=== PATIENT | female | born 1970 | race Caucasian/White ===

== ENCOUNTER → 2017-03-06 | Outpatient (CLI) | payer BC ==
[~2017-03-06] MED LIST: ASPEC81 PO; ATV/1 PO; B-COTAB18 PO; BUPR-266 PO; CALC500T68 PO; CHOL1CAP74 PO; FRRG27 PO; GLC500 PO; HMLI SC; HYDR25TA5 PO; INSDGI SQ; LAMO200T PO; LAMO200T38 PO; LEVO100T PO; LOSA100T65 PO; METH10TA4 PO; PRVC/20 PO; ZNTT/150 PO
[2017-03-06 18:02] LABS: BASO % 0.4 %; BASO ABS # 0.03 K/uL (0-0.2); COMPLETE YES; EOS % 2.3 %; HEMATOCRIT 38.7 % (37-47); IG% 0.3 %; LYMPH % 28.5 %; MEAN CELL VOLUME 88.8 fL (80-100); MEAN CORPUSCULAR HEMOGLOBIN 29.4 pg (25-34); MEAN CORPUSCULAR HGB CONC 33.1 g/dl (32-36); MEAN PLATELET VOLUME 9.8 fL (7.4-10.4); MONO % 6.6 %; NEUT % 61.9 %; PLATELET COUNT 371 K/uL (130-400); RED BLOOD COUNT 4.36 M/uL (4.2-5.4); WHITE BLOOD COUNT 7.38 K/uL (4.8-10.8)
[2017-03-06 18:24] LABS: CALCIUM 9.2 mg/dl (8.5-10.1)
[2017-03-06 18:38] LABS: FERRITIN 87.4 ng/ml (8.0-388.0); THYROID STIMULATING HORMONE 1.43 uIu/ml (0.300-4.500)
[2017-03-06 18:56] LABS: ESTIMATED AVERAGE GLUCOSE 137 mg/dl; HA1C FLAG Normal (Normal)
[2017-03-11 10:05] LABS: METHYLMALONIC ACID 107 NMOL/L (87-318)
== END | disposition home or self-care (01) ==
LOC: C.LABMFLN 12:57
PROVIDERS: ATTEND Psychiatry & Neurology Child & Adolescent Psychiatry
DX: F33.2 Major depressive disorder, recurrent severe without psychotic features (principal); Z98.84 Bariatric surgery status; E03.9 Hypothyroidism, unspecified; E06.3 Autoimmune thyroiditis; E78.5 Hyperlipidemia, unspecified; E55.9 Vitamin D deficiency, unspecified; I10 Essential (primary) hypertension; E11.9 Type 2 diabetes mellitus without complications

== ENCOUNTER 2017-03-19 07:52 | Day surgery (SDC) | payer BC ==
[~2017-03-19] VITALS: Ht 175.3 cm; Wt 97.0 kg
[~2017-03-19 07:52] MED LIST changes: +PATIENT'S ALLERGY INFO NEEDS ENTERED SCH
[2017-03-19 07:56] VITALS: BP 133/76; PULSE 82; TEMP 36.6; O2SAT 96; Ht 175.3 cm; Wt 97.0 kg
[2017-03-19] MEDS ORDERED: PRAM0.129 PO (08:21)
[2017-03-19 08:30] VITALS: BP 121/77; PULSE 82; TEMP 36.6; O2SAT 96
[2017-03-19] MEDS ORDERED: COSYNTROPIN INJ 1 MCG in SYRINGE 0 ML IV SCH (08:30)
[2017-03-19 09:00] VITALS: BP 124/79; PULSE 76; TEMP 36.6; O2SAT 96
[2017-03-19 09:30] VITALS: BP 132/84; PULSE 82; O2SAT 96
== END 2017-03-20 12:56 | disposition home or self-care (01) ==
LOC: C.MTU 07:52
PROVIDERS: ATTEND Internal Medicine Endocrinology, Diabetes & Metabolism
DX: E06.3 Autoimmune thyroiditis (principal); E03.9 Hypothyroidism, unspecified; F32.9 Major depressive disorder, single episode, unspecified; E11.9 Type 2 diabetes mellitus without complications; R41.3 Other amnesia

== ENCOUNTER → 2017-03-27 | Outpatient (CLI) | payer BC ==
[~2017-03-27] MED LIST changes: +ASPI81TA28 PO; +BUSP15TA70 PO; +CALC-51 PO; +ESTR2TAB PO; +FERR1TAB13 PO; -HYDR25TA5 PO; +MAGN1CAP2 PO; +ONDA4TAB10 SL; -PATIENT'S ALLERGY INFO NEEDS ENTERED SCH; +PRAM0.129 PO; +[UNRECOGNIZED DRUG - CODE] PO
[2017-03-27 18:09] LABS: BASO % 0.4 %; BASO ABS # 0.04 K/uL (0-0.2); COMPLETE YES; EOS % 1.3 %; HEMATOCRIT 39.3 % (37-47); IG% 0.2 %; LYMPH ABS # 2.47 K/uL (1.2-3.4); MEAN CELL VOLUME 88.3 fL (80-100); MEAN CORPUSCULAR HEMOGLOBIN 30.1 pg (25-34); MEAN CORPUSCULAR HGB CONC 34.1 g/dl (32-36); MEAN PLATELET VOLUME 9.7 fL (7.4-10.4); MONO % 5.9 %; NEUT % 68.2 %; PLATELET COUNT 429 K/uL (130-400); RED BLOOD COUNT 4.45 M/uL (4.2-5.4); WHITE BLOOD COUNT 10.31 K/uL (4.8-10.8)
[2017-03-27 18:33] LABS: ALT/SGPT 39 U/L (12-78); AMYLASE 30 U/L (25-115); AST/SGOT 18 U/L (15-37); BLOOD UREA NITROGEN 8 mg/dl (7-18); BUN/CREATININE RATIO 7.7 (10-20); CALCIUM 8.9 mg/dl (8.5-10.1); CARBON DIOXIDE 24 mmol/L (21-32); CHLORIDE 108 mmol/L (98-107); GLUCOSE 159 mg/dl (70-99); POTASSIUM 4.1 mmol/L (3.5-5.1); SODIUM 139 mmol/L (136-145)
[2017-03-27 18:36] LABS: ALB/GLOB RATIO 1.3 (0.9-2); ALKALINE PHOSPHATASE 79 U/L (45-117)
== END | disposition home or self-care (01) ==
LOC: C.LABMFLN 13:19
PROVIDERS: ATTEND Family Medicine
DX: R10.13 Epigastric pain (principal)

== ENCOUNTER → 2017-04-06 | Outpatient (CLI) | payer BC | END | disposition home or self-care (01) | LOC: C.LABMFLN 09:53 | PROVIDERS: ATTEND Internal Medicine Endocrinology, Diabetes & Metabolism | DX: R63.4 Abnormal weight loss (principal); M62.81 Muscle weakness (generalized); C64.9 Malignant neoplasm of unspecified kidney, except renal pelvis ==

== ENCOUNTER 2017-05-09 17:28 | Emergency (ER) | payer BC ==
[~2017-05-09] VITALS: Ht 177.8 cm; Wt 94.1 kg
[~2017-05-09 17:28] MED LIST changes: -ASPI81TA28 PO; -BUSP15TA70 PO; -CALC-51 PO; -ESTR2TAB PO; -FERR1TAB13 PO; -MAGN1CAP2 PO; -ONDA4TAB10 SL; -[UNRECOGNIZED DRUG - CODE] PO
[2017-05-09 17:44] VITALS: TEMP 36.7; Ht 177.8 cm; Wt 94.1 kg
--- NOTE | 2017-05-09 18:20 | EMERGENCY ROOM VISIT NOTE ---
History Report prepared by Laura: Vadim Albert Under the Supervision of: Dr. Wale Salazar M.D. First contact with patient: 18:01 Chief Complaint: GI ASSESSMENT Stated Complaint: ACID REFLUX,DEHYDRATED,NAUSEA History of Present Illness The patient is a 46 year old female who presents to the Emergency Room with complaints of constant, burning, epigastric chest pain beginning three days ago. The patient states that she has a history of gastric bypass surgery that occurred 16 years ago. She reports that since then, she has had a recurrent peptic ulcer. The patient notes that she believes it is GERD and believes this is a flare. The patient notes that her chest pain occasionally radiates to her left shoulder. She states that five days ago she developed diarrhea that was green, and she noticed black in her stool in the ED. She denies a history of C- Diff, drinking from streams, and recent travel. The patient reports that she has been experiencing nausea, dry heaves, a decreased appetite, and cramping in her toes for the past few days. She notes that she believes this is because she is dehydrated. The patient states that she has tried roll aids and TUMs, but they have not been helping. She reports that she developed a headache earlier today, and she tried Vicodin, Tylenol, and ibuprofen, but they are not helping. The patient notes that she is trying to schedule an endoscopy. She denies hematochezia, vomiting, cough, shortness of breath, and recent seizures. The patient states that she has a history of diabetes mellitus, and she has not checked her blood glucose recently. She reports that she occasionally eats marijuana. The patient notes that she has a history of a hysterectomy, cholecystectomy, and denies a history of pancreatitis and appendicitis. Source of History: patient Onset: three days ago Position: chest (epigastric) Quality: burning Timing: constant Associated Symptoms: + headache, + nausea, + melena, + diarrhea, No cough, No SOB, No vomiting, No hematochezia Note: Associated symptoms: left shoulder pain, decreased appetite, dry heaves, toe cramping Denies: recent seizures Review of Systems See HPI for pertinent positives & negatives. A total of 10 systems reviewed and were otherwise negative. Past Medical & Surgical Medical Problems: (1) Anemia (2) CASH'S PALSY (3) Cancer of kidney (4) DM (diabetes mellitus) (5) Epilepsy (6) Hypothyroidism (7) HYPOTHYROIDISM NOS (8) Kidney stone (9) Numbness on left side (10) RENAL COLIC Surgical Problems: (1) S/P gastric bypass Old medical records were reviewed. Nurse's notes were reviewed and I agree with. Family History Diabetes mellitus FH: cancer FH: gallbladder disease Kidney disease Kidney stones Seizures Social History Smoking Status: Never Smoker Alcohol Use: none Drug Use: marijuana Marital Status: single Housing Status: lives with family Occupation Status: unemployed Current/Historical Medications Scheduled Aspirin (Aspirin Ec), 162 MG PO QPM B-Complex Vitamins (Vitamin B Complex), 1 TAB PO BID Bupropion Hcl (Bupropion Hcl Er), 200 MG PO BID Buspirone Hcl (Buspar), 30 MG PO BID Calcium Carbonate-Vitamin D (Calcium), 400 MG PO HS Cholecalciferol (Vitamin D3 Maximum Streng), 5,000 UNITS PO DAILY Estradiol (Estradiol), 2 MG PO DAILY Ferrous Sulfate (Kp Ferrous Sulfate), 650 MG PO BID Lamotrigine (Lamictal), 200 MG PO QAM Lamotrigine (Lamictal), 100 MG PO HS Levothyroxine Sodium (Synthroid), 150 MCG PO QAM Losartan Potassium (Cozaar), 50 MG PO DAILY Loxapine Succinate (Loxapine), 10 MG PO HS Magnesium Oxide (Mg Supplement (Magnesium), 400 MG PO TID Metformin HCl (Metformin HCl), 1,000 MG PO BID Methylphenidate (Ritalin), 20 MG PO QID Ondasetron Odt (Zofran Odt), 4 MG SL Q6H Pramipexole (Mirapex), 0.5 MG PO TID Pravastatin Sod (Pravastatin Sodium), 20 MG PO DAILY Scheduled PRN Lorazepam (Ativan), 1 MG PO QID PRN for PRN Ranitidine (Zantac), 150 MG PO BID PRN for PRN Allergies Coded Allergies: Ketorolac (Verified Adverse Reaction, Mild, NAUSEA, 05/09/17) Physical Exam Vital Signs Date Time Temp Pulse Resp B/P (MAP) Pulse Ox O2 Delivery O2 Flow Rate FiO2 05/09/17 20:53 82 20 166/98 99 Room Air 05/09/17 19:12 90 05/09/17 18:52 91 18 153/101 97 Room Air 05/09/17 18:51 96 Room Air 05/09/17 17:44 36.7 106 20 150/99 96 Room Air Physical Exam General: Well developed well nourished in no acute distress, breathing comfortably on room air. Normal speech. Non-ill appearing, middle aged female. HEENT: Normal cephalic atraumatic. Pupils are equal round and reactive to light. Sclera anicteric. Extraocular movements are intact. Oropharynx is pink with moist mucous membranes. No swelling of the mouth lips or tongue. Neck: Supple with a midline trachea. No meningeal signs or stiffness, no JVD or bruits. No Stridor. Chest: Clear to auscultation bilaterally. No wheezes or rhonchi. No increased work of breathing. Heart: regular rate and rhythm. Abdomen: Soft nontender, nondistended without rebound guarding or rigidity. Extremities: No cyanosis clubbing or edema. No calf tenderness or assymetry Spine/Back. Non tender to palpation. No CVA tenderness Skin: Good turgor without rashes. Neurologic exam: Cranial nerves two through 12 are intact. Motor and sensation are intact and symmetrical throughout. Medical Decision & Procedures ER Provider Diagnostic Interpretation: X-ray results as stated below per interpretation by me and the radiologist: CHEST ONE VIEW PORTABLE CLINICAL HISTORY: 46 years-old Female presenting with CHEST PAIN. TECHNIQUE: Portable upright AP view of the chest was obtained. COMPARISON: 05/31/2014. FINDINGS: Cardiomediastinal silhouette normal. Lungs and pleural spaces clear. Osseous structures normal. Suture margin projects over the epigastrium from prior gastric bypass. Cholecystectomy clips noted. IMPRESSION: 1. No acute cardiopulmonary disease. Electronically signed by: Lincoln Fuller M.D. 05/09/2017 6:44 PM Dictated Date/Time: 05/09/2017 6:43 PM Laboratory Results 05/09/17 18:44 Red Blood Count 4.19, Mean Corpuscular Volume 89.0, Mean Corpuscular Hemoglobin 30.1, Mean Corpuscular Hemoglobin Concent 33.8, Mean Platelet Volume 9.0, Neutrophils (%) (Auto) 69.9, Lymphocytes (%) (Auto) 22.5, Monocytes (%) (Auto) 6.1, Eosinophils (%) (Auto) 0.8, Basophils (%) (Auto) 0.2, Neutrophils # (Auto) 6.08, Lymphocytes # (Auto) 1.96, Monocytes # (Auto) 0.53, Eosinophils # (Auto) 0.07, Basophils # (Auto) 0.02 05/09/17 18:44 Test 05/09/17 17:40 05/09/17 18:44 05/09/17 18:49 Urine Color YELLOW Urine Appearance CLEAR (CLEAR) Urine pH 6.5 (4.5-7.5) Urine Specific [place] 1.011 (1.000-1.030) Urine Protein NEG (NEG) Urine Glucose (UA) NEG (NEG) Urine Ketones NEG (NEG) Urine Occult Blood NEG (NEG) Urine Nitrite NEG (NEG) Urine Bilirubin NEG (NEG) Urine Urobilinogen NEG (NEG) Urine Leukocyte Esterase NEG (NEG) White Blood Count 8.70 K/uL (4.8-10.8) Red Blood Count 4.19 M/uL (4.2-5.4) Hemoglobin 12.6 g/dL (12.0-16.0) Hematocrit 37.3 % (37-47) Mean Corpuscular Volume 89.0 fL (80-100) Mean Corpuscular Hemoglobin 30.1 pg (25-34) Mean Corpuscular Hemoglobin Concent 33.8 g/dl (32-36) Platelet Count 355 K/uL (130-400) Mean Platelet Volume 9.0 fL (7.4-10.4) Neutrophils (%) (Auto) 69.9 % Lymphocytes (%) (Auto) 22.5 % Monocytes (%) (Auto) 6.1 % Eosinophils (%) (Auto) 0.8 % Basophils (%) (Auto) 0.2 % Neutrophils # (Auto) 6.08 K/uL (1.4-6.5) Lymphocytes # (Auto) 1.96 K/uL (1.2-3.4) Monocytes # (Auto) 0.53 K/uL (0.11-0.59) Eosinophils # (Auto) 0.07 K/uL (0-0.5) Basophils # (Auto) 0.02 K/uL (0-0.2) RDW Standard Deviation 43.1 fL (36.4-46.3) RDW Coefficient of Variation 13.3 % (11.5-14.5) Immature Granulocyte % (Auto) 0.5 % Immature Granulocyte # (Auto) 0.04 K/uL (0.00-0.02) Anion Gap 10.0 mmol/L (3-11) Est Creatinine Clear Calc Drug Dose 102.6 ml/min Estimated GFR () 93.9 Estimated GFR (Non- 81.0 BUN/Creatinine Ratio 7.4 (10-20) Calcium Level 8.6 mg/dl (8.5-10.1) Total Bilirubin 0.6 mg/dl (0.2-1) Direct Bilirubin 0.1 mg/dl (0-0.2) Aspartate Amino Transf (AST/SGOT) 16 U/L (15-37) Alanine Aminotransferase (ALT/SGPT) 28 U/L (12-78) Alkaline Phosphatase 69 U/L (45-117) Total Protein 6.3 gm/dl (6.4-8.2) Albumin 3.3 gm/dl (3.4-5.0) Lipase 181 U/L (73-393) Thyroid Stimulating Hormone (TSH) 2.120 uIu/ml (0.300-4.500) Human Chorionic Gonadotropin, Qual NEG (NEG) Bedside Glucose 131 mg/dl (70-90) Bedside Troponin I < 0.030 ng/ml (0-0.045) Laboratory studies as stated above per my review. Medications Administered Medications (Trade) Dose Ordered Sig/Carlos Alberto Route Start Time Stop Time Status Last Admin Dose Admin Sodium Chloride 1,000 ml @ 999 mls/hr Q1H1M STAT IV 05/09/17 18:25 05/09/17 19:25 DC 05/09/17 18:58 999 MLS/HR Sodium Chloride 1,000 ml @ 200 mls/hr Q5H ONCE IV 05/09/17 18:25 05/09/17 21:44 DC 05/09/17 18:59 200 MLS/HR Ondansetron HCl (Zofran Inj) 4 mg NOW STAT IV 05/09/17 18:33 05/09/17 18:34 DC 05/09/17 18:55 4 MG Morphine Sulfate (MoRPHine SULFATE INJ) 4 mg NOW STAT IV 05/09/17 18:33 05/09/17 18:34 DC 05/09/17 18:56 4 MG Al Hydroxide/Mg Hydroxide (Maalox Susp) 30 ml NOW STAT PO 05/09/17 18:33 05/09/17 18:34 DC 05/09/17 18:55 30 ML Lidocaine HCl (Viscous Lidocaine 2% Soln) 10 ml NOW STAT MT 05/09/17 18:33 05/09/17 18:34 DC 05/09/17 18:55 10 ML Ondansetron HCl (ZOFRAN ODT 4MG Home Pack) 1 homepack UD ONCE PO 05/09/17 20:30 05/09/17 20:31 DC 05/09/17 20:51 1 HOMEPACK ECG Indication: chest pain Rate (beats per minute): 89 Rhythm: normal sinus Findings: no acute ischemic change, no ectopy Comparison ECG Date: 05/20/16 Change: no significant change ED Course 180: Past medical records reviewed. The patient was evaluated in room B03B by the medical student under my supervision, and a complete history and physical examination were performed. 1824: Ordered Sodium Chloride 1000 ml @ 200 mls/hr IV, Sodium Chloride 1000 ml @ 999 mls/hr IV 1825: Past medical records reviewed. The patient was evaluated by me, and a complete history and physical examination were performed. 3: Ordered Lidocaine HCl 10ml MT, Maalox Susp 30ml PO, Morphine Sulfate 4mg IV, Ondansetron HCl 4mg IV 7: Upon reevaluation, the patient is resting and feeling. I discussed the results and treatment plan with her. She verbalized agreement of the treatment plan. The patient will be discharged home when she receives her medication. 2030: Ordered Ondansetron HCl 1 homepack PO Medical Decision Differentials include, but are not limited to; GERD, peptic ulcer, dehydration, electrolyte metabolic abnormality, hypoglycemia, cardiac disease, pancreatitis, gastroenteritis. This patient comes in as described above. She was placed in room B3. She is here for treatment and evaluation of diarrhea epigastric burning and nausea. She does have a history of an ulcer for many years apparently. She looks well on exam. She also had a headache which may related hydration status. She is nontoxic and non-lethargic. She has a normal neurologic exam. IV access established was hydrated with IV 1 L normal saline bolus and 200 mL an hour normal saline. She was given Zofran 4 mg IV and morphine 4 mg IV. Her is driving. after these measures, she felt significantly better. She has no white count or fever to suggest infection. Her abdomen is benign and nontender . she is not . She has nothing to suggest liver or pancreas disease. Her gallbladder from previously removed. She has normal electrolytes and kidney function. She has a nonischemic EKG and nothing to suggest cardiac disease. This may be more GERD. She has been having diarrhea. I did order stool studies but she was unable give a sample here. She'll rest and continue use Zantac and [id number] antacids she was given Zofran if needed. She should return if: increasing pain, worsening of symptoms, fever or chills, any new problems or concerns. Impression Primary Impression: Dehydration Additional Impressions: Epigastric discomfort GERD (gastroesophageal reflux disease) Headache Scribe Attestation The scribe's documentation has been prepared under my direction and personally reviewed by me in its entirety. I confirm that the note above accurately reflects all work, treatment, procedures, and medical decision making performed by me. Departure Information Dispostion Home / Self-Care Prescriptions Ondasetron Odt (ZOFRAN ODT) 4 Mg Tab 4 MG SL Q6H for Nausea, #14 TAB Prov: Wale Salazar M.D. 05/09/17 Referrals No Doctor, Assigned (PCP) Forms HOME CARE DOCUMENTATION FORM, IMPORTANT VISIT INFORMATION Patient Instructions My [facility] Additional Instructions Rest Drink plenty of fluids Continue to use Zantac and [id number] antacids May use Zofran 4 mg under the tongue every 6 hours if needed for nausea Return if: Increasing pain, worsening symptoms, bloody or black stool, fever or chills, chest pain, any new problems or concerns. Follow-up with your doctor Friday for recheck. Problem Qualifiers
[2017-05-09] MEDS ORDERED: SODIUM CHLORIDE 0.9% 1000ML 1,000 ML IV STA (18:25)
[2017-05-09] MEDS ORDERED: SODIUM CHLORIDE 0.9% 1000ML 1,000 ML IV ONE (18:25)
[2017-05-09] MEDS ORDERED: LIDOCAINE HCL 2% VISC SOLN 20 ML UDC MT STA (18:33)
[2017-05-09] MEDS ORDERED: MoRPHine SULFATE 4 MG/ML 1 ML CARP\\VIAL IV STA (18:33)
[2017-05-09] MEDS ORDERED: ONDANSETRON INJ 2 MG/ML 2 ML VIAL IV STA (18:33)
[2017-05-09] MEDS ORDERED: ALUMINUM/MAGNESIUM SUSP 30 ML UDC PO STA (18:33)
[2017-05-09] MEDS ORDERED: BUSP15TA70 PO (18:34)
[2017-05-09] MEDS ORDERED: FERR1TAB13 PO (18:34)
[2017-05-09] MEDS ORDERED: CALC-51 PO (18:34)
[2017-05-09] MEDS ORDERED: ASPI81TA28 PO (18:34)
[2017-05-09] MEDS ORDERED: MAGN1CAP2 PO (18:34)
[2017-05-09] MEDS ORDERED: ESTR2TAB PO (18:34)
[2017-05-09] MEDS ORDERED: [UNRECOGNIZED DRUG - CODE] PO (18:34)
--- NOTE | 2017-05-09 18:46 | DIAGNOSTIC IMAGING REPORT ---
CHEST ONE VIEW PORTABLE CLINICAL HISTORY: 46 years-old Female presenting with CHEST PAIN. TECHNIQUE: Portable upright AP view of the chest was obtained. COMPARISON: 05/31/2014. FINDINGS: Cardiomediastinal silhouette normal. Lungs and pleural spaces clear. Osseous structures normal. Suture margin projects over the epigastrium from prior gastric bypass. Cholecystectomy clips noted. IMPRESSION: 1. No acute cardiopulmonary disease. Electronically signed by: Lincoln Fuller M.D. 05/09/2017 6:44 PM Dictated Date/Time: 05/09/2017 6:43 PM
[2017-05-09 18:51] VITALS: O2SAT 96
[2017-05-09 19:00] LABS: BASO % 0.2 %; BASO ABS # 0.02 K/uL (0-0.2); COMPLETE YES; EOS % 0.8 %; HEMATOCRIT 37.3 % (37-47); IG% 0.5 %; LYMPH % 22.5 %; LYMPH ABS # 1.96 K/uL (1.2-3.4); MEAN CORPUSCULAR HEMOGLOBIN 30.1 pg (25-34); MEAN CORPUSCULAR HGB CONC 33.8 g/dl (32-36); MONO % 6.1 %; NEUT % 69.9 %; PLATELET COUNT 355 K/uL (130-400); RED BLOOD COUNT 4.19 M/uL (4.2-5.4)
[2017-05-09 19:16] LABS: BUN/CREATININE RATIO 7.4 (10-20); CALCIUM 8.6 mg/dl (8.5-10.1); CREATININE 0.87 mg/dl (0.60-1.20); POTASSIUM 3.5 mmol/L (3.5-5.1)
[2017-05-09 19:25] LABS: PREG INTERNAL NEGATIVE QC NEG CLEAR BACKGROUND; PREG INTERNAL POSITIVE QC POS CONTROL LINE
[2017-05-09 19:27] LABS: THYROID STIMULATING HORMONE 2.12 uIu/ml (0.300-4.500)
[2017-05-09] MEDS ORDERED: ONDANSETRON HOME PACK 4MG OD TAB PO ONE (20:30)
[2017-05-09] MEDS ORDERED: ONDA4TAB10 SL (20:30)
[2017-05-09 20:53] VITALS: BP 166/98; PULSE 82; O2SAT 99
[2017-05-09 21:16] LABS: URINE APPEARANCE CLEAR (CLEAR); URINE BILIRUBIN NEG (NEG); URINE COLOR YELLOW; URINE NITRITE NEG (NEG); URINE PH 6.5 (4.5-7.5); URINE SPECIFIC GRAVITY 1.011 (1.000-1.030); UROBILINOGEN NEG (NEG)
[2017-05-09 21:22] LABS: MANUAL MICROSCOPIC REQUIRED? NO; REVIEW REQ? NO
== END 2017-05-09 20:55 | disposition home or self-care (01) ==
LOC: C.EDB 17:30
DX: R10.13 Epigastric pain (principal); E86.0 Dehydration; K21.9 Gastro-esophageal reflux disease without esophagitis; R51 Headache; Z95.1 Presence of aortocoronary bypass graft; E11.9 Type 2 diabetes mellitus without complications; Z90.710 Acquired absence of both cervix and uterus; Z90.49 Acquired absence of other specified parts of digestive tract; D64.9 Anemia, unspecified; G51.0 Bell's palsy; Z85.528 Personal history of other malignant neoplasm of kidney; G40.909 Epilepsy, unspecified, not intractable, without status epilepticus; E03.9 Hypothyroidism, unspecified; Z83.3 Family history of diabetes mellitus; Z80.9 Family history of malignant neoplasm, unspecified; Z84.1 Family history of disorders of kidney and ureter; Z82.0 Family history of epilepsy and other diseases of the nervous system; Z79.82 Long term (current) use of aspirin; Z79.899 Other long term (current) drug therapy; F12.90 Cannabis use, unspecified, uncomplicated

== ENCOUNTER → 2017-06-16 | Outpatient (CLI) | payer BC ==
[~2017-06-16] MED LIST changes: -ASPEC81 PO; +ASPI81TA28 PO; +BUSP15TA70 PO; +CALC-51 PO; -CALC500T68 PO; +ESTR2TAB PO; +FERR1TAB13 PO; -FRRG27 PO; -HMLI SC; -INSDGI SQ; +MAGN1CAP2 PO; +ONDA4TAB10 SL; +[UNRECOGNIZED DRUG - CODE] PO
[2017-06-16 18:53] LABS: THYROID STIMULATING HORMONE 1.13 uIu/ml (0.300-4.500)
== END | disposition home or self-care (01) ==
LOC: C.LABMFLN 14:01
PROVIDERS: ATTEND Internal Medicine Endocrinology, Diabetes & Metabolism
DX: E78.5 Hyperlipidemia, unspecified (principal); E03.9 Hypothyroidism, unspecified

== ENCOUNTER → 2017-09-23 | Outpatient (CLI) | payer BC ==
[~2017-09-23] MED LIST changes: +LAMO200T35 PO; -LAMO200T38 PO
[2017-09-23 17:58] LABS: BASO % 0.3 %; BASO ABS # 0.04 K/uL (0-0.2); EOS % 1.5 %; EOS ABS # 0.18 K/uL (0-0.5); HEMATOCRIT 42.7 % (37-47); HEMOGLOBIN 14.4 g/dL (12.0-16.0); IG# 0.03 K/uL (0.00-0.02); LYMPH % 34.6 %; LYMPH ABS # 4.18 K/uL (1.2-3.4); MEAN CELL VOLUME 92.2 fL (80-100); MEAN CORPUSCULAR HEMOGLOBIN 31.1 pg (25-34); MEAN CORPUSCULAR HGB CONC 33.7 g/dl (32-36); MEAN PLATELET VOLUME 9.7 fL (7.4-10.4); MONO % 7.8 %; MONO ABS # 0.94 K/uL (0.11-0.59); NEUT % 55.6 %; NEUT ABS # 6.71 K/uL (1.4-6.5); PLATELET COUNT 407 K/uL (130-400); RED CELL DISTRIBUTION WIDTH CV 13.4 % (11.5-14.5); RED CELL DISTRIBUTION WIDTH SD 44.7 fL (36.4-46.3); WHITE BLOOD COUNT 12.08 K/uL (4.8-10.8)
[2017-09-23 18:17] LABS: ALBUMIN 3.6 gm/dl (3.4-5.0); BLOOD UREA NITROGEN 9 mg/dl (7-18); CALCIUM 8.8 mg/dl (8.5-10.1); CARBON DIOXIDE 28 mmol/L (21-32); CREATININE 0.96 mg/dl (0.60-1.20); GLUCOSE 71 mg/dl (70-99); POTASSIUM 3.7 mmol/L (3.5-5.1); SODIUM 136 mmol/L (136-145)
[2017-09-23 18:23] LABS: ALKALINE PHOSPHATASE 67 U/L (45-117); ALT/SGPT 55 U/L (12-78); AST/SGOT 28 U/L (15-37); TOTAL PROTEIN 7.1 gm/dl (6.4-8.2)
[2017-09-24 06:22] LABS: HEMOGLOBIN A1C 6.1 % (4.5-5.6)
== END | disposition home or self-care (01) ==
LOC: C.LABMFLN 16:39
PROVIDERS: ATTEND Family Medicine
DX: E11.9 Type 2 diabetes mellitus without complications (principal); N39.0 Urinary tract infection, site not specified

== ENCOUNTER 2025-03-01 12:43 | Observation (INO) ==
[2025-03-01 13:41] LABS: Hematocrit (blood only) 44.3 % (37.0-47.0); Hemoglobin 15.0 g/dl (12.0-16.0); Immature Granulocytes # (auto) 0.07 K/uL (0.01-0.20); Immature Granulocytes % (auto) 0.6 %; Mean Corpuscular Hemoglobin 30.1 pg (25.0-34.0); Mean Corpuscular Volume 89.0 fL (80.0-100.0); Platelet Count 405 K/uL (130-400); RDW Standard Deviation 42.8 fL (36.4-46.3); Red Blood Count 4.98 M/uL (4.20-5.40); White Blood Count 11.86 K/ul (4.8-10.8)
--- NOTE | 2025-03-01 14:02 | Emergency Department Note ---
Impression & Plan Complicated urinary tract infection, Dysuria, Acute dehydration ED Provider Note NAME: FARRAH SEAMAN AGE: 54 SEX: F : 1970 ARRIVES VIA: Walk-In INFORMANT: Patient, ED PROVIDER(S): Nabeel Suresh MD CHIEF COMPLAINT: Outpatient referral, complicated UTI MEDICAL DECISION MAKING: Patient presents with the above. I did review the patient's most recent urine culture which shows Klebsiella oxytocin which was sensitive Macrobid which the patient is already trialed but with confusion and the patient has taken 2 doses fosfomycin. Patient did have lactate Pro-Chris and blood cultures ordered. Patient was ordered IV fluids. Did discuss with pharmacy recommended IV ertapenem 1 g. Blood work shows white count of 11.8 with a normal hemoglobin. Platelet count of 405. The patient's kidney function with a creat of 1.6. Potassium of 5.2. Lactate of 2.1. Procalcitonin 0.09. I did speak to the on- call hospitalist and the patient was admitted to the medicine service. Discussion w/ other healthcare providers: Dr. Neville inpatient medicine service Prior /Outside records reviewed: None Differential diagnosis: Infection, dehydration, metabolic abnormality, hypo/hyperglycemia, electrolyte imbalance, anemia, UTI, pneumonia, thyroid dysfunction among others were considered. Diagnostics, as interpreted by me: ECG: None Cardiac monitoring: An order was placed for continuous cardiac monitoring. The monitor shows a rate of 95 with sinus rhythm. Patient was placed on pulse oximetry Medical decision rules: None Imaging studies: None HPI: Patient presents due to concern for requiring IV antibiotics. The patient reports that she has had UTI related symptoms since August. Patient states that most recently the patient was trialed on Macrobid as well as 2 doses of fosfomycin patient was still having symptoms as well as urine culture that she was seen by her PCP today and referred here for IV antibiotics. Patient denies any chest pain. She has had some chills and subjective fevers. Patient denies any vomiting. Patient states that she does have dysuria and frequency. No blood in the urine. Patient states that when she took the Macrobid that she got confused and said it was a people were speaking informed languages. Patient denies any cough. PAST MEDICAL HISTORY: See Below PAST SURGICAL HISTORY: See Below SOCIAL HISTORY: See Below HOME MEDICATIONS: See Below ALLERGIES: See Below VITALS: See Below PHYSICAL EXAMINATION: GENERAL: NAD, non-toxic. EYE EXAM: Normal conjunctiva. PERRL, no anisocoria and EOM's grossly intact w/o pain. OROPHARYNX: Moist mucus membranes, grossly normal dentition. NECK: Trachea midline, no stridor. LUNGS: Clear to auscultation. Normal chest wall mechanics. HEART: Tachycardic and regular, no MRG. ABDOMEN: Abdomen soft, suprapubic discomfort without other abdominal pain, ileostomy noted, not peritonitic, no masses, no rebound or guarding. BACK: No CVA TTP. SKIN: No rashes and no bruising. UPPER EXTREMITIES: Upper extremities are grossly normal. LOWER EXTREMITIES: Grossly normal, no edema. NEURO EXAM: Awake and alert, follows commands, no obvious facial asymmetry, normal speech, moves all 4 extremities. Past Med/Surg History Problem List Acute dehydration (Acute) Dysuria (Acute) Complicated urinary tract infection (Acute) Urinary tract infection due to ESBL Klebsiella Right nephrolithiasis Antibiotic-resistant bacterial infection Recurrent UTI (urinary tract infection) Urinary symptom or sign Ileostomy in place Dyspnea on exertion Annual physical exam Sinus tachycardia Orthostatic hypotension Postoperative anemia Stroke-like symptom Vision abnormalities Expressive aphasia Diabetic peripheral neuropathy Colonic dysmotility Colonic dysfunction Common peroneal neuropathy of left lower extremity Peripheral neuropathy Right leg swelling May-Thurner syndrome Lumbar radiculopathy Left foot drop Inflammatory arthritis Chronic fatigue Sacroiliac (ligament) sprain Radicular syndrome of right leg Low back pain Vulvovaginitis Chronic constipation Oropharyngeal candidiasis Candidal dermatitis Urinary urgency Dysuria Vitamin B12 deficiency (non anemic) Anemia Has daytime drowsiness Vitamin B12 deficiency Hypothyroid Abnormal cortisol level Chronic left-sided lumbar radiculopathy Osteoarthritis of left hip Cubital tunnel syndrome on left Encounter for pre-operative examination Vitamin D deficiency Strabismus Premature menopause Nephrolithiasis Eating disorder Diabetes type 2, uncontrolled Renal cyst Pain of right great toe present Arthralgia 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 (E.coli) (Acute) Insomnia Nasal congestion Fatigue Snoring Witnessed apneic spells Dyssynergic constipation Osteopenia Medical marijuana use Obesity Recurrent UTI Iron deficiency anemia Type 2 diabetes mellitus, with long-term current use of insulin Hypertension History of renal carcinoma s/p partial nephrectomy > no chemo Depression Gastric bypass status for obesity Anxiety ADD (attention deficit disorder) PTSD (post-traumatic stress disorder) Hypothyroidism Dyslipidemia History of right oophorectomy Medical History Renal cell cancer Immunosuppression due to chronic steroid use Bilateral sacroiliitis Seizure disorder [place] Demyelinating disorder DVT (deep venous thrombosis) 11/2021 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 Iliac vein stenosis, left s/p stent placement 03/2022 [facility] in . History of cystoscopy History of esophagogastroduodenoscopy (EGD) History of colonoscopy History of nasal septoplasty History of tonsillectomy S/P tonsillectomy H/O partial nephrectomy History of dental surgery wisdom teeth S/P hysterectomy S/P cholecystectomy H/O bilateral breast reduction surgery H/O abdominoplasty Family History Father Diabetes Hypertension Mother Diabetes Hypertension Kidney stone Grandmother Breast cancer Social History Smoking Status: Never smoker Second Hand Exposure: No; Do You Dip or Chew Tobacco: No; Hx Alcohol Use: No Hx Substance Use: Yes Substance Use Type Other:: medical card, not every day Preferred Language: Ivorian Communication Ability: Effective [employer]er Required: No Beliefs That Will Affect Care: None marital status: Current Living Situation: Spouse current occupational status: disabled current occupation: teacher How many Children do You have: 0 Feels Safe at Home: Yes Assistive Devices: Glasses Allergies Allergies Allergy/AdvReac Type Severity Reaction Status Date / Time amoxicillin [From Augmentin] Allergy Severe Swelling Verified 03/01/25 14:50 of Lip/Tongue/Throat clavulanic acid Allergy Severe Swelling Verified 03/01/25 14:50 [From Augmentin] of Lip/Tongue/Throat oxycodone [From Percocet] Allergy Intermediate itching Verified 03/01/25 14:50 sulfamethoxazole Allergy Intermediate Hives Verified 03/01/25 14:50 [From Bactrim] trimethoprim [From Bactrim] Allergy Intermediate Hives Verified 03/01/25 14:50 nitrofurantoin AdvReac Intermediate Confusion Verified 03/01/25 14:50 [From Macrobid] ketorolac AdvReac Mild NAUSEA Verified 03/01/25 14:50 Sulfa (Sulfonamide AdvReac Mild Irritable Verified 03/01/25 15:47 Antibiotics) metronidazole [From Flagyl] AdvReac Confusion Verified 03/01/25 14:50 Home Meds Home Medications Medication Instructions Recorded Confirmed magnesium oxide 400 mg PO BID #0 tabs 07/11/20 03/01/25 aspirin 81 mg tablet,delayed 81 mg PO QPM #0 tabs 11/08/20 03/01/25 release lorazepam 1 mg tablet (Ativan) 1 mg PO BID PRN Anxiety 12/19/20 03/01/25 blood-glucose sensor (Dexcom G6 12/14/21 02/21/25 Sensor device) zolpidem 5 mg tablet (Ambien) 10 mg PO HS PRN Sleep 12/14/21 03/01/25 dextroamphetamine-amphetamine 20 20 mg PO TID 11/10/23 03/01/25 mg tablet (Adderall) clotrimazole 1 % topical cream 1 applic topical BID PRN Skin 03/01/25 03/01/25 Irritation cyanocobalamin (vitamin B-12) 1,000 mcg IM MONTHLY 03/01/25 03/01/25 1,000 mcg/mL injection solution duloxetine 60 mg capsule,delayed 60 mg PO DAILY 03/01/25 03/01/25 release insulin lispro 100 unit/mL See Rx Instructions subcut 03/01/25 03/01/25 subcutaneous pen (Humalog KwikPen .COMPLEX PRN WHEN NOT USING (U-100) Insulin) INSULIN PUMP insulin lispro 100 unit/mL 0 sliding scale dose continuous 03/01/25 03/01/25 subcutaneous solution (Humalog subcutaneous infusion CONTINOUS U-100 Insulin) levothyroxine 150 mcg tablet 150 mcg PO 6XWK 03/01/25 03/01/25 (Synthroid) tirzepatide 5 mg/0.5 mL 7.5 mg subcut WK 03/01/25 03/01/25 subcutaneous pen injector Previous Rx's Medication Instructions Recorded pen needle, diabetic 32 gauge x #100 ea 10/30/22 5/32" (BD Ultra-Fine Mar[place]uy Pen Needle) syringe with needle 3 mL 20 gauge #100 ea 01/23/23 x 1" (BD Luer-Warren Syringe) blood sugar diagnostic (FreeStyle #100 ea 04/11/23 Precision Mohsen Strips) fluticasone propionate 50 2 spray intranasal DAILY #16 grams 07/25/23 mcg/actuation nasal spray,suspension syringe with needle, safety 3 mL #50 ea 07/25/23 22 gauge x 1" (Monoject Safety Syringes) cholecalciferol (vitamin D3) 125 5,000 unit PO PM #30 tabs 07/30/23 mcg (5,000 unit) tablet Rolator type walker with #1 ea 01/07/24 handbrakes and seat acetone (urine) test (Ketostix #25 ea 02/09/24 strips) aripiprazole 20 mg tablet 20 mg PO DAILY #30 tabs 04/30/24 pravastatin 20 mg tablet 20 mg PO HS #90 tabs 06/14/24 ondansetron 4 mg disintegrating 4 mg PO Q8H PRN nausea and 06/29/24 tablet vomiting #30 tabs OneTouch Delica Plus Lancet 33 #200 ea 08/27/24 gauge (lancets) OneTouch Verio Flex meter #1 ea 08/27/24 (blood-glucose meter) OneTouch Verio test strips (blood #200 ea 08/27/24 sugar diagnostic) metformin 500 mg tablet 1,000 mg (2 x 500 mg) PO BID #360 10/28/24 tabs pregabalin 50 mg capsule 50 mg PO BID #60 caps 12/24/24 cyclobenzaprine 10 mg tablet 10 mg PO HS #30 tabs 02/08/25 methenamine hippurate 1 gram tablet 1 g PO BID #180 tabs 02/14/25 Results & Data (ED) Vital Signs Vital Signs - 24 hr 03/01/25 12:55 03/01/25 14:52 03/01/25 15:13 Temperature 36.8 C Temperature Source Temporal Artery Scan Pulse Rate 117 H Pulse Rate [Left Finger] 110 H Pulse Rhythm [Left Finger] Regular Pulse Strength [Left Finger] Normal Respiratory Rate 18 18 Respiratory Effort / Characteristics Non-Labored Spontaneous Respiratory Depth Normal Respiratory Pattern Regular Blood Pressure 124/88 94/59 L Blood Pressure [Left Arm] 94/59 L Blood Pressure Mean 100 70 Blood Pressure Mean [Left Arm] 70 Blood Pressure Position [Left Arm] Lying Pulse Oximetry 97 100 Oxygen Delivery Method Room Air Room Air Sepsis Recent Fever Within 48 Hours No Sepsis New/Unexplained Change in Mental Status N/A Sepsis Action Taken by Nursing No Action Required Home Medications Current Medication List: was personally reviewed by me Laboratory Data Attestation: I reviewed the patient's lab results. 03/01/25 13:14 03/01/25 13:14 Lab Results 03/01/25 03/01/25 03/01/25 Range/Units 13:14 13:15 14:14 WBC 11.86 H (4.8-10.8) K/ul RBC 4.98 (4.20-5.40) M/uL Hgb 15.0 (12.0-16.0) g/dl Hct 44.3 (37.0-47.0) % MCV 89.0 (80.0-100.0) fL MCH 30.1 (25.0-34.0) pg MCHC 33.9 (32.0-36.0) g/dL RDW Std Deviation 42.8 (36.4-46.3) fL RDW Coeff of Adam 13.2 (11.5-14.5) % Plt Count 405 H (130-400) K/uL MPV 9.1 L (9.4-12.4) fL Immature Gran % (Auto) 0.6 % Neut % (Auto) 71.0 % Lymph % (Auto) 19.6 % [place] % (Auto) 6.5 % Eos % (Auto) 1.6 % Baso % (Auto) 0.7 % Neut # (Auto) 8.42 H (1.40-6.50) K/uL Lymph # (Auto) 2.33 (1.20-3.40) K/uL [place] # (Auto) 0.77 H (0.11-0.59) K/uL Eos # (Auto) 0.19 (0.00-0.50) K/uL Baso # (Auto) 0.08 (0.00-0.20) K/uL Immature Gran # (Auto) 0.07 (0.01-0.20) K/uL Sodium 130 L (136-145) mmol/L Potassium 5.2 H (3.5-5.1) mmol/L Chloride 101 (98-107) mmol/L Carbon Dioxide 20 L (21-32) mmol/L Anion Gap 9 (3-11) BUN 14 (6-23) mg/dl Creatinine 1.60 H (0.6-1.2) mg/dl Est Cr Clr Drug Dosing 56.8 ml/min eGFR 38.56 BUN/Creatinine Ratio 8.8 L (10-20) Glucose 143 H (70-99(Fasting)) mg/dl Lactate 2.1 H* (0.4-2.0) mmol/L Calcium 9.7 (8.6-10.3) mg/dl Total Bilirubin 0.9 (0.2-1.0) mg/dl AST 36 (13-39) U/L ALT 55 H (7-52) U/L Alkaline Phosphatase 111 H (34-104) U/L Total Protein 7.7 (6.0-8.3) gm/dl Albumin 4.6 (3.4-5.0) gm/dl Globulin 3.1 (2.5-4.0) gm/dl Albumin/Globulin Ratio 1.5 (0.9-2) Procalcitonin 0.09 (0-0.5) ng/ml Random Cortisol 5.89 mcg/dl Administered Medications Sodium Chloride (Nss) 1,000 mls @ 150 mls/hr IV .Q6H40M LILY Stop: 03/04/25 15:44 Last Admin: 03/01/25 16:58 Dose: 150 mls/hr Documented By: ANT Discontinued Medications Sodium Chloride (Nss) 1,000 mls @ 999 mls/hr IV .Q1H1M ONE Stop: 03/01/25 15:04 Last Infusion: 03/01/25 15:51 Dose: Infused Documented By: Admin: 03/01/25 14:13 Dose: 999 mls/hr Documented By: RAINE Ertapenem (Invanz 1000mg) 1,000 mg in 10 mls @ 2 mls/min IV NOW STA Stop: 03/01/25 14:11 Last Admin: 03/01/25 14:51 Dose: 2 mls/min Documented By: RAINE Sodium Chloride (Nss) 1,000 mls @ 999 mls/hr IV .Q1H1M ONE Stop: 03/01/25 16:02 Last Infusion: 03/01/25 16:58 Dose: Infused Documented By: Admin: 03/01/25 15:54 Dose: 999 mls/hr Documented By: ELADIA Discharge Plan Visit Data Chief Complaint: Infection Stated Complaint: DOC REF,BACTERIAL INF ED Provider: Nabeel Suresh Discharge Problem: Complicated urinary tract infection, Dysuria, Acute dehydration Patient Disposition: Admitted As Inpatient Condition: Good Discharge Instructions Interventions: ED Discharge Assessment Last Done: 03/01/25 17:33
[2025-03-01 14:03] LABS: Alanine Aminotransferase 55.0 U/L (7-52); Albumin Globulin Ratio 1.5 (0.9-2); Alkaline Phosphatase 111.0 U/L (34-104); Anion Gap 9.0 (3-11); Bilirubin,Total 0.9 mg/dl (0.2-1.0); Blood Urea Nitrogen 14.0 mg/dl (6-23); Calcium 9.7 mg/dl (8.6-10.3); Carbon Dioxide 20.0 mmol/L (21-32); Chloride 101.0 mmol/L (98-107); Creatinine Clr Calc Pharmacy 56.8 ml/min; Globulin 3.1 gm/dl (2.5-4.0); Glucose 143.0 mg/dl (70-99(Fasting)); Potassium 5.2 mmol/L (3.5-5.1); Sodium 130.0 mmol/L (136-145); Total Protein 7.7 gm/dl (6.0-8.3)
[2025-03-01] MEDS: SODIUM CHLORIDE 0.9% 1,000 ML IV ONE ×2 (14:13→15:54)
[2025-03-01] MEDS: ERTAPENEM 1000MG 1,000 MG/10 ML SYR IV STA (14:51)
--- NOTE | 2025-03-01 14:51 | History & Physical Report ---
Date of Service March 01, 2025 Assessment & Plan (1) Urinary tract infection due to ESBL Klebsiella: (2) Sepsis: (3) Hyponatremia: (4) Hyperkalemia: (5) STELLA (acute kidney injury): (6) Demyelinating disorder: (7) History of DVT (deep vein thrombosis): (8) Orthostatic hypotension: (9) Ileostomy status: (10) Hypothyroid: (11) Abnormal cortisol level: (12) Type 2 diabetes mellitus, with long-term current use of insulin: (13) Gastric bypass status for obesity: (14) ADD (attention deficit disorder): Plan Ms Medina is a 54yo female with history of recurrent UTIs, ileostomy creation 08/2024 at [facility] due to colonic inertia/motility disorder, ? of a demyelinating disease although ultimately ruled out based on neurology notes, chronic prednisone use from [id number] for concern for autoimmune/inflammatory arthritis (seen by [facility] rheum for such, no specific diagnosis found, prednisone weaned off earlier this year), gastric bypass status, prior DVT, peripheral neuropathy, T2DM on insulin pump, history of renal cell carcinoma s/p partial nephrectomy, ADD, hypothyroidism, May-Thurner Syndrome, and HTN. Presented today from her PCP's office due to refractory UTI symptoms in the setting of MDR/ESBL klebsiella oxytoca that grew on 02/18 urine culture. #UTI 2nd to MDR/ESBL klebsiella - -s/p IV ertapenem in the ER; will continue ertapenem 1gm IV daily -will need 7 days of such -she reports flank pain recently, but she was not tender on exam today -I attempted to get the renal u/s report from [facility] (had the study late last week) but apparently it hasn't been read? -most recent CT a/p was late November 2024 showing a 5mm renal stone in the right kidney without obstruction; otherwise the CT was wnl; will defer on repeat CT at this time -follow repeat urine cx sent from the PCP's office today -follow blood cx's -cause of recurrent UTIs? immunosuppression from DM? presence of kidney stone? other? -just saw [facility] 02/14 for this issue #likely early sepsis - -2nd to UTI; no other source seen on exam -follow blood cx's -ertapenem IV -s/p IVF bolus in ER; I gave a 2nd bolus, followed by copious basal fluids at 150ml/hr -initial lactate high; repeat now wnl #hyponatremia - -appears volume contracted -continue isotonic fluids -repeat a BMP tonight then again in am -cortisol level checked and only 5 -- see below #mild hyperkalemia - -2nd to STELLA in setting of UTI/sepsis -continue isotonic fluids; repeat BMP later tonight, then again in am -cortisol level only 5 -- see below #STELLA - -likely due to dehydration in setting of UTI -IV fluids, serial labs -presenting Cr 1.6 -baseline Cr 1 to 1.3 going back about 6 months #leg pains with prior h/o DVT - -obtain dopplers of both legs - r/o DVT -neurology documentation from early 2024 describes EMG confirmed neuropathy; much of her pain is likely from such #mildly low cortisol, prior prednisone use for about 1 year (ended sometime early 2024) - -BPs were borderline low early in the ER course -likely due to UTI/sepsis/dehydration, but can't rule out adrenal insufficiency as well -cortisol was 5 -thus, plan for cosyntropin stim test in am tomorrow; NPO after 10pm tonight for such #T2DM on insulin pump - -a1c 7.3% in late January -she has had excellent control with her pump (and Monjouro) -will allow her to use her CGM and her own insulin pump; orders placed #hypothyroidism - -TSH wnl in late January -cont home synthroid dosing #h/o gastric bypass #h/o renal cell cancer s/p partial nephrectomy #h/o ADD - -cont home Adderall #mood disorder - -cont abilify #neuropathy - -cont cymbalta #DVT proph - -if dopplers of legs are negative would start lovenox SC at DVT proph dosing History of Present Illness Chief Complaint: resistant UTI Primary Care Provider: Ron Lyons MD Ms Medina is a 54yo female with history of recurrent UTIs, ileostomy creation 08/2024 at [facility] due to colonic inertia/motility disorder, ? of a demyelinating disease although ultimately ruled out based on neurology notes, chronic prednisone use from [id number] for autoimmune/inflammatory arthritis (seen by rheum for such, no specific diagnosis found), gastric bypass status, prior DVT, peripheral neuropathy, T2DM on insulin pump, history of renal cell carcinoma, ADD, hypothyroidism, May-Thurner Syndrome, and HTN. Patient was seen earlier today by her PCP and due to ongoing UTI symptoms and recent urine culture from 02/18 showing highly resistant klebsiella oxytoca it was advised she seek hospitalization. With respect to her current UTI she has had symptoms dating back to late January. This is in addition to a UTI she was treated for in late December/early January. Current UTI was initially treated with macrobid, but with 1 dose she felt confused/delirious. Thus, she did not take any further macrobid. Then, last week, she took 2 doses of fosfomycin. Despite the above she has continued with bothersome UTI symptoms including dysuria, malodorous urine, incontinence, frequency, and incomplete bladder emptying. Denies abdominal pain. Normal appetite fortunately. Did have subjective fevers with chills in late January. No vomiting but has had nausea occasionally. She had a renal u/s last week at [facility] but has not received the results. Has had some mild b/l flank pain during her illness. In addition to the UTI symptoms she reports feeling short of breath. This occurs when she stands as well as when she walks short distances. These chest symptoms started in August 2024 after her ileostomy surgery. The chest symptoms are worse when she has an active UTI. No chest pain, but has a dull ache with the shortness of breath. Has had intermittent swelling in her legs, and in early January she had odd right leg pains. Patient reports she was started on Mounjouro about 1 month ago. She continues on her insulin pump. Most BSGs are <150. Review of her chart shows she was admitted to [facility] in October of this year for chest symptoms & tachycardia. CTA chest was negative for PE at that time. I cannot find the actual report but her Lexiscan nuclear stress test was negative (per notes from her PCP). Allergies Allergy/AdvReac Type Severity Reaction Status Date / Time amoxicillin [From Augmentin] Allergy Severe Swelling Verified 03/01/25 14:50 of Lip/Tongue/Throat clavulanic acid Allergy Severe Swelling Verified 03/01/25 14:50 [From Augmentin] of Lip/Tongue/Throat oxycodone [From Percocet] Allergy Intermediate itching Verified 03/01/25 14:50 sulfamethoxazole Allergy Intermediate Hives Verified 03/01/25 14:50 [From Bactrim] trimethoprim [From Bactrim] Allergy Intermediate Hives Verified 03/01/25 14:50 nitrofurantoin AdvReac Intermediate Confusion Verified 03/01/25 14:50 [From Macrobid] ketorolac AdvReac Mild NAUSEA Verified 03/01/25 14:50 Sulfa (Sulfonamide AdvReac Mild Irritable Verified 03/01/25 15:47 Antibiotics) metronidazole [From Flagyl] AdvReac Confusion Verified 03/01/25 14:50 Home Medications Medication Instructions Recorded Confirmed Type magnesium oxide 400 mg PO BID #0 tabs 07/11/20 03/01/25 History aspirin 81 mg tablet,delayed 81 mg PO QPM #0 tabs 11/08/20 03/01/25 History release lorazepam 1 mg tablet (Ativan) 1 mg PO BID PRN Anxiety 12/19/20 03/01/25 History blood-glucose sensor (Dexcom G6 12/14/21 02/21/25 History Sensor device) zolpidem 5 mg tablet (Ambien) 10 mg PO HS PRN Sleep 12/14/21 03/01/25 History pen needle, diabetic 32 gauge x #100 ea 10/30/22 02/21/25 Rx 5/32" (BD Ultra-Fine [place] Pen Needle) syringe with needle 3 mL 20 gauge #100 ea 01/23/23 02/21/25 Rx x 1" (BD Luer-Warren Syringe) blood sugar diagnostic (FreeStyle #100 ea 04/11/23 02/21/25 Rx Precision Mohsen Strips) fluticasone propionate 50 2 spray intranasal DAILY #16 grams 07/25/23 03/01/25 Rx mcg/actuation nasal spray,suspension syringe with needle, safety 3 mL #50 ea 07/25/23 02/21/25 Rx 22 gauge x 1" (Monoject Safety Syringes) cholecalciferol (vitamin D3) 125 5,000 unit PO PM #30 tabs 07/30/23 03/01/25 Rx mcg (5,000 unit) tablet dextroamphetamine-amphetamine 20 20 mg PO TID 11/10/23 03/01/25 History mg tablet (Adderall) Rolator type walker with #1 ea 01/07/24 02/21/25 Rx handbrakes and seat acetone (urine) test (Ketostix #25 ea 02/09/24 02/21/25 Rx strips) aripiprazole 20 mg tablet 20 mg PO DAILY #30 tabs 04/30/24 03/01/25 Rx pravastatin 20 mg tablet 20 mg PO HS #90 tabs 06/14/24 03/01/25 Rx ondansetron 4 mg disintegrating 4 mg PO Q8H PRN nausea and 06/29/24 03/01/25 Rx tablet vomiting #30 tabs OneTouch Delica Plus Lancet 33 #200 ea 08/27/24 02/21/25 Rx gauge (lancets) OneTouch Verio Flex meter #1 ea 08/27/24 02/21/25 Rx (blood-glucose meter) OneTouch Verio test strips (blood #200 ea 08/27/24 02/21/25 Rx sugar diagnostic) metformin 500 mg tablet 1,000 mg (2 x 500 mg) PO BID #360 10/28/24 03/01/25 Rx tabs pregabalin 50 mg capsule 50 mg PO BID #60 caps 12/24/24 03/01/25 Rx cyclobenzaprine 10 mg tablet 10 mg PO HS #30 tabs 02/08/25 03/01/25 Rx methenamine hippurate 1 gram tablet 1 g PO BID #180 tabs 02/14/25 03/01/25 Rx clotrimazole 1 % topical cream 1 applic topical BID PRN Skin 03/01/25 03/01/25 History Irritation cyanocobalamin (vitamin B-12) 1,000 mcg IM MONTHLY 03/01/25 03/01/25 History 1,000 mcg/mL injection solution duloxetine 60 mg capsule,delayed 60 mg PO DAILY 03/01/25 03/01/25 History release insulin lispro 100 unit/mL See Rx Instructions subcut 03/01/25 03/01/25 History subcutaneous pen (Humalog KwikPen .COMPLEX PRN WHEN NOT USING (U-100) Insulin) INSULIN PUMP insulin lispro 100 unit/mL 0 sliding scale dose continuous 03/01/25 03/01/25 History subcutaneous solution (Humalog subcutaneous infusion CONTINOUS U-100 Insulin) levothyroxine 150 mcg tablet 150 mcg PO 6XWK 03/01/25 03/01/25 History (Synthroid) tirzepatide 5 mg/0.5 mL 7.5 mg subcut WK 03/01/25 03/01/25 History subcutaneous pen injector Past Med/Surg History Problem List Ileostomy status History of DVT (deep vein thrombosis) STELLA (acute kidney injury) Hyperkalemia Hyponatremia Sepsis Acute dehydration (Acute) Dysuria (Acute) Complicated urinary tract infection (Acute) Urinary tract infection due to ESBL Klebsiella Right nephrolithiasis Antibiotic-resistant bacterial infection Recurrent UTI (urinary tract infection) Urinary symptom or sign Dyspnea on exertion Annual physical exam Sinus tachycardia Orthostatic hypotension Postoperative anemia Stroke-like symptom Vision abnormalities Expressive aphasia Diabetic peripheral neuropathy Colonic dysmotility Colonic dysfunction Common peroneal neuropathy of left lower extremity Peripheral neuropathy Right leg swelling May-Thurner syndrome Lumbar radiculopathy Left foot drop Inflammatory arthritis Chronic fatigue Sacroiliac (ligament) sprain Radicular syndrome of right leg Low back pain Vulvovaginitis Chronic constipation Oropharyngeal candidiasis Candidal dermatitis Urinary urgency Dysuria Vitamin B12 deficiency (non anemic) Anemia Has daytime drowsiness Vitamin B12 deficiency Hypothyroid Abnormal cortisol level Chronic left-sided lumbar radiculopathy Osteoarthritis of left hip Cubital tunnel syndrome on left Encounter for pre-operative examination Vitamin D deficiency Strabismus Premature menopause Nephrolithiasis Eating disorder Diabetes type 2, uncontrolled Renal cyst Pain of right great toe present Arthralgia 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 (E.coli) (Acute) Insomnia Nasal congestion Fatigue Snoring Witnessed apneic spells Dyssynergic constipation Osteopenia Medical marijuana use Obesity Recurrent UTI Iron deficiency anemia Type 2 diabetes mellitus, with long-term current use of insulin Hypertension History of renal carcinoma s/p partial nephrectomy > no chemo Depression Gastric bypass status for obesity Anxiety ADD (attention deficit disorder) PTSD (post-traumatic stress disorder) Hypothyroidism Dyslipidemia History of right oophorectomy Medical History Ileostomy in place Renal cell cancer Immunosuppression due to chronic steroid use Bilateral sacroiliitis Seizure disorder [place] Demyelinating disorder DVT (deep venous thrombosis) 11/2021 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 Iliac vein stenosis, left s/p stent placement 03/2022 [facility] in . History of cystoscopy History of esophagogastroduodenoscopy (EGD) History of colonoscopy History of nasal septoplasty History of tonsillectomy S/P tonsillectomy H/O partial nephrectomy History of dental surgery wisdom teeth S/P hysterectomy S/P cholecystectomy H/O bilateral breast reduction surgery H/O abdominoplasty Family History Father Diabetes Hypertension Mother Diabetes Hypertension Kidney stone Grandmother Breast cancer Social History Smoking Status: Never smoker Second Hand Exposure: No; Do You Dip or Chew Tobacco: No; Hx Alcohol Use: No Hx Substance Use: Yes Substance Use Type Other:: medical card, not every day Preferred Language: French Communication Ability: Effective Senior System Operator Required: No Beliefs That Will Affect Care: None marital status: Current Living Situation: Spouse current occupational status: disabled current occupation: teacher How many Children do You have: 0 Feels Safe at Home: Yes Assistive Devices: Glasses and Walker Review of Systems Review of Systems: gen - subjective fevers and chills since late January; normal appetite eyes - no visual changes recently HENT - no URI symptoms CV - no chest pain, some dull ache at times pulm - dyspnea on exertion, no cough GI - no abdominal pain; no vomiting; some nausea; ileostomy functioning well; empties collection bag about 4x/day - dysuria, frequency, incomplete bladder emptying, etc. musculo - no recent joint swelling; right leg pain in January now improved skin - no rash endo - BSGs have been very good, most 150s or less neuro - no focal motor weakness; chronic neuropathy Physical Exam Physical Exam: gen - obese, NAD, pleasant, nontoxic appearing eyes - PERRL HENT - MM dry, no lesions, no thrush neck - no JVD, no goiter, no lymph nodes heart - tachy (HR low 100s), s1 s2, no murmur lungs - CTA b/l abd - soft NT ND BS+; no flank tenderness b/l; ileostomy in place on right, sto ma healthy appearing, brown stool in bag ext - no edema of either leg, pulses b/l feet 2+ neuro - strength 5/5 x 4 exts; DTRs 2+ b/l upper & lower exts skin - no rash psych - a/o x 3 Results & Data Results & Data Vital Signs (Past 12 Hours) Vital Signs Temp Pulse Resp BP Pulse Ox O2 Del Method 03/01/25 12:55 36.8 C 117 H 18 124/88 97 Room Air Laboratory Results Laboratory Results - last 24 hr 03/01/25 03/01/25 03/01/25 13:14 13:15 14:14 WBC 11.86 H RBC 4.98 Hgb 15.0 Hct 44.3 MCV 89.0 MCH 30.1 MCHC 33.9 RDW Std Deviation 42.8 RDW Coeff of Adam 13.2 Plt Count 405 H MPV 9.1 L Immature Gran % (Auto) 0.6 Neut % (Auto) 71.0 Lymph % (Auto) 19.6 [place] % (Auto) 6.5 Eos % (Auto) 1.6 Baso % (Auto) 0.7 Neut # (Auto) 8.42 H Lymph # (Auto) 2.33 [place] # (Auto) 0.77 H Eos # (Auto) 0.19 Baso # (Auto) 0.08 Immature Gran # (Auto) 0.07 Sodium 130 L Potassium 5.2 H Chloride 101 Carbon Dioxide 20 L Anion Gap 9 BUN 14 Creatinine 1.60 H Est Cr Clr Drug Dosing 56.8 eGFR 38.56 BUN/Creatinine Ratio 8.8 L Glucose 143 H POC Glucose Lactate 2.1 H* Calcium 9.7 Total Bilirubin 0.9 AST 36 ALT 55 H Alkaline Phosphatase 111 H Total Protein 7.7 Albumin 4.6 Globulin 3.1 Albumin/Globulin Ratio 1.5 Procalcitonin 0.09 Random Cortisol 5.89 Diagnostic Findings Spec: [id number] Collected: 02/18/25 Received: 02/18/[address]: Constance Montesinos CRNP Source: Urine,Random OV Order: Ordered: Urine Culture Procedure Result Verified Site Urine Culture Final 02/21/25 Organism 1 Klebsiella oxytoc/[place] ornith [place] Count 80,000 CFU/ml Sens Sensitivities to Follow Kl oxy/Duran RX M.I.C. --- --------- Amikacin S <=16 Amox/Clav I 16/8 Ampicillin R >16 Amp/Sul R >16/8 Cefazolin R >16 Cefepime R >16 Cefotaxime R >32 Cefoxitin I 16 Ceftriaxone R >32 Cefuroxime R >16 Ciprofloxacin R >2 Ertapenem S <=0.5 Gentamicin R >8 Levofloxacin I 1 Meropenem S <=1 Nitrofurantoin S <=32 Tobramycin R >8 Trimeth/Sulfa R >2/38 Pip/Tazo S 16 S = SENSITIVE I = INTERMEDIATE R = RESISTANT repeat urine cx obtained at PCP's office today; sent/pending blood cx's obtained in ER today Code Status & VTE Plan Code Status full code PG Care Time/CCT Total # of Minutes Spent Total Time Spent with Patient: Total time spent is greater than 50% in coordination of care (as documented) at patient's floor/unit and/or counseling patient: Coding Level of Care Code 27010 INT INP/OBS CARE 3/75MIN Diagnoses Urinary tract infection due to ESBL Klebsiella N39.0; B96.89 Sepsis A41.9 Hyponatremia E87.1 Hyperkalemia E87.5 STELLA (acute kidney injury) N17.9 Demyelinating disorder G37.9 History of DVT (deep vein thrombosis) Z86.718 Orthostatic hypotension I95.1 Ileostomy status Z93.2 Hypothyroid E03.9 Abnormal cortisol level R79.89 Type 2 diabetes mellitus, with long-term current use of insulin E11.9; Z79.4 Gastric bypass status for obesity Z98.84 ADD (attention deficit disorder) F98.8
--- NOTE | 2025-03-01 16:56 | Ultrasound Report ---
Clinical History: Bilateral leg discomfort Technique: Venous ultrasound evaluation was performed utilizing grayscale, color Doppler and wave form evaluation. Images were also obtained with and without compression Findings: The bilateral common femoral, superficial femoral, popliteal, and visualized calf veins demonstrate normal anechoic lumens with full compressibility. Normal flow is seen on color Doppler images. Expected waveforms were produced with augmentation maneuvers Impression: No evidence of deep venous thrombosis Electronically signed by Renato Obrien 03-01-2025 4:56 PM
[2025-03-01] MEDS: SODIUM CHLORIDE 0.9% 1,000 ML IV SCH (16:58)
[2025-03-01] MEDS ORDERED: GLUCOSE 40% GEL 15 GM TUBE PO PRN (17:33)
[2025-03-01] MEDS ORDERED: INSULIN, Regular PUMP SC SCH (17:33)
[2025-03-01] MEDS ORDERED: MELATONIN 3 MG TAB PO PRN (17:33)
[2025-03-01] MEDS ORDERED: CARBOHYDRATES FOR HYPOGLYCEMIA PO PRN (17:33)
[2025-03-01] MEDS ORDERED: GLUCOSE 10 TAB/TUBE PO PRN (17:33)
[2025-03-01] MEDS ORDERED: GLUCAGON FOR INJ 1 MG VIAL SQ PRN (17:33)
[2025-03-01] MEDS ORDERED: INSULIN HUMAN REGULAR SC PRN (17:33)
[2025-03-01] MEDS ORDERED: DEXTROSE 50% 50 ML SYRINGE IV PRN (17:33)
[2025-03-01] MEDS ORDERED: CYCLOBENZAPRINE HCL 10 MG TAB PO PRN (17:33)
[2025-03-01] MEDS ORDERED: INSULIN ASPART 100 UNITS/ML VIAL SC PRN (18:00)
[2025-03-01] MEDS: ONDANSETRON INJ 2 MG/ML 2 ML VIAL IV PRN (19:20)
[2025-03-01 20:32] LABS: Anion Gap 5.0 (3-11); Blood Urea Nitrogen 13.0 mg/dl (6-23); Calcium 8.2 mg/dl (8.6-10.3); Carbon Dioxide 20.0 mmol/L (21-32); Chloride 110.0 mmol/L (98-107); Creatinine Clr Calc Pharmacy 68.9 ml/min; Glucose 142.0 mg/dl (70-99(Fasting)); Potassium 4.7 mmol/L (3.5-5.1); Sodium 135.0 mmol/L (136-145)
[2025-03-01] MEDS: ZOLPIDEM TARTRATE 5 MG TAB PO PRN (22:07)
[2025-03-01] MEDS: CHOLECALCIFEROL 125 MCG (5,000 UNITS) TAB PO SCH (22:09)
[2025-03-01] MEDS: MAGNESIUM OXIDE 400 MG TAB PO SCH (22:09)
[2025-03-01] MEDS: DEXTROAMPHETAMINE/AMPHETAMINE IR 20 MG TAB PO SCH (22:09)
[2025-03-01] MEDS: PRAVASTATIN SOD 20 MG TAB PO SCH (22:09)
[2025-03-01] MEDS: ASPIRIN 81 MG ECTAB PO SCH (22:11)
[2025-03-01] MEDS: INSULIN, Rapid-Acting PUMP SCH (22:37)
[2025-03-02] MEDS: LORazepam 1 MG TAB PO PRN (00:36)
[2025-03-02] MEDS: ACETAMINOPHEN 325 MG TAB PO PRN (03:16)
[2025-03-02] MEDS: Continuous Glucose Monitor SCH (04:52)
[2025-03-02] MEDS ORDERED: Nursing to Pharmacy Communication SCH (05:00)
[2025-03-02] MEDS: LEVOTHYROXINE SODIUM 150 MCG TABLET PO SCH (06:30)
[2025-03-02] MEDS: COSYNTROPIN 250 MCG in SYRINGE 4 ML IV ONE (07:47)
[2025-03-02 08:04] LABS: Hematocrit (blood only) 36.4 % (37.0-47.0); Hemoglobin 12.2 g/dl (12.0-16.0); Mean Corpuscular Hemoglobin 30.5 pg (25.0-34.0); Mean Corpuscular Volume 91.0 fL (80.0-100.0); Platelet Count 295 K/uL (130-400); RDW Standard Deviation 43.8 fL (36.4-46.3); Red Blood Count 4.00 M/uL (4.20-5.40); White Blood Count 7.19 K/ul (4.8-10.8)
[2025-03-02 08:27] LABS: Anion Gap 5.0 (3-11); Blood Urea Nitrogen 12.0 mg/dl (6-23); Calcium 8.1 mg/dl (8.6-10.3); Carbon Dioxide 20.0 mmol/L (21-32); Chloride 114.0 mmol/L (98-107); Creatinine Clr Calc Pharmacy 73.9 ml/min; Glucose 97.0 mg/dl (70-99(Fasting)); Magnesium 1.8 mg/dl (1.7-2.4); Potassium 4.9 mmol/L (3.5-5.1); Sodium 139.0 mmol/L (136-145)
[2025-03-02] MEDS: DEXTROAMPHETAMINE/AMPHETAMINE IR 20 MG TAB PO SCH (08:28)
[2025-03-02] MEDS: FLUTICASONE PROPIONATE NA SPR 16 GM BTL NAE SCH (08:33)
[2025-03-02] MEDS: HYDROCORTISONE 10 MG TAB PO SCH (13:38)
[2025-03-02] MEDS: ERTAPENEM 1000MG 1,000 MG/10 ML SYR IV SCH (13:38)
--- NOTE | 2025-03-02 13:49 | Hospitalist Progress Note ---
Date of Service March 02, 2025 Assessment & Plan (1) Urinary tract infection due to ESBL Klebsiella: (2) Sepsis: (3) Hyponatremia: (4) Hyperkalemia: (5) STELLA (acute kidney injury): (6) Demyelinating disorder: (7) Orthostatic hypotension: (8) Hypothyroid: (9) Abnormal cortisol level: (10) Type 2 diabetes mellitus, with long-term current use of insulin: Plan Ms Medina is a 54yo female with history of recurrent UTIs, ileostomy creation 08/2024 at [facility] due to colonic inertia/motility disorder, ? of a demyelinating disease although ultimately ruled out based on neurology notes, chronic prednisone use from [id number] for concern for autoimmune/inflammatory arthritis ([facility] for such, no specific diagnosis found, prednisone weaned off earlier this year), gastric bypass status, prior DVT, peripheral neuropathy, T2DM on insulin pump, history of renal cell carcinoma s/p partial nephrectomy, ADD, hypothyroidism, May-Thurner Syndrome, and HTN. Presented 03/01/2025 from her PCP's office due to refractory UTI symptoms in the setting of MDR/ESBL klebsiella oxytoca that grew on 02/18 urine culture. #UTI/ESBL klebsiella/sepsis POA UC from 02/18 + for ESBL Klebsiella. --> consistent w/ repeat UC on 03/01 BC neg @ 24hrs Procal negative; lactate initially 2.1 but upon recheck normalized to 1.4 CBC w/ resolution of leukocytosis. IV Ertapenem x 7 days Has had recent renal US [facility] --> pending a read? #hyponatremia Mildly low upon admission @ 135 Improvement to 139 on 03/02 s/p IV fluids AM BMP #mild hyperkalemia K mildly elevated upon admission @ 5.2 Improvement to 4.9 on 03/02 s/p IVF #STELLA present on admission w/ creatinine of 1.60. Baseline ~ 1.3 improvement to 1.23 on 03/02 continue IVF #mildly low cortisol, prior prednisone use for about 1 year (ended sometime early 2024) random cortisol 5 Cosyntropin stim w/ slow response started hydrocortisone 15mg in AM & 10mg @ 2pm --> PCP can gradually taper off w hen appropriate. #T2DM on insulin pump - a1c 7.3% in late January she has had excellent control with her pump (and Monjouro) will allow her to use her CGM and her own insulin pump; orders placed #hypothyroidism - TSH wnl in late January cont home synthroid dosing #h/o ADD - cont home Adderall #mood disorder -cont abilify #neuropathy -cont cymbalta #DVT proph - heparin Code: full Hopeful for discharge home 03/03 w/ remainder of infusions @ infusion center. Discussed w/ CM 03/02 Admission and Anticipated Discharge Date Admission Date: March 01, 2025 Isacc Cárdenas was seen and examined this morning. She still is reporting pain in her flank region & burning w/ urination. Physical Exam Physical Exam: General: no acute distress; non-toxic appearing; well-nourished; cooperative HEENT: normocephalic, atraumatic; no scleral icterus; PERRLA w/ EOMs intact; vision and hearing grossly intact Neck: trachea midline Skin: warm, dry without signs of tenting; no cyanosis; no rashes, bruising, lesions, or erythema noted Lungs: no acute respiratory distress; symmetrical chest wall expansion MSK: no edema noted in the LEs b/l, nonerythematous Neuro: A&Ox3; normal mood and affect; fluent speech; no focal deficits Results & Data Results & Data Vital Signs (Past 12 Hours) Vital Signs Temp Pulse Resp BP Pulse Ox O2 Del Method 03/02/25 11:28 36.6 C 103 H 20 113/75 93 Room Air 03/02/25 07:00 37.5 C 105 H 19 105/68 97 Room Air 03/02/25 02:57 36.9 C 106 H 16 135/83 98 Room Air PG Care Time/CCT Total # of Minutes Spent Total Time Spent with Patient: Total time spent is greater than 50% in coordination of care (as documented) at patient's floor/unit and/or counseling patient: Coding Level of Care Code 97343 SUB INP/OBS CARE 3/50MIN Diagnoses Urinary tract infection due to ESBL Klebsiella N39.0; B96.89 Sepsis A41.9 Hyponatremia E87.1 Hyperkalemia E87.5 STELLA (acute kidney injury) N17.9 Demyelinating disorder G37.9 Orthostatic hypotension I95.1 Hypothyroid E03.9 Abnormal cortisol level R79.89 Type 2 diabetes mellitus, with long-term current use of insulin E11.9; Z79.4
[2025-03-02] MEDS ORDERED: NAPROXEN 375 MG TAB PO PRN (17:27)
[2025-03-02] MEDS: HEPARIN SOD 5,000 UNIT/0.5 ML VIAL SQ SCH (21:37)
[2025-03-03 03:22] VITALS: O2SAT 97
[2025-03-03 06:38] LABS: Hematocrit (blood only) 33.4 % (37.0-47.0); Hemoglobin 11.2 g/dl (12.0-16.0); Mean Corpuscular Hemoglobin 31.1 pg (25.0-34.0); Mean Corpuscular Volume 92.8 fL (80.0-100.0); Platelet Count 253 K/uL (130-400); RDW Standard Deviation 43.9 fL (36.4-46.3); Red Blood Count 3.60 M/uL (4.20-5.40); White Blood Count 6.40 K/ul (4.8-10.8)
[2025-03-03 07:03] VITALS: TEMP 97.7
[2025-03-03 07:11] LABS: Anion Gap 4.0 (3-11); Blood Urea Nitrogen 11.0 mg/dl (6-23); Calcium 8.0 mg/dl (8.6-10.3); Carbon Dioxide 20.0 mmol/L (21-32); Chloride 116.0 mmol/L (98-107); Creatinine Clr Calc Pharmacy 81.9 ml/min; Glucose 94.0 mg/dl (70-99(Fasting)); Potassium 4.6 mmol/L (3.5-5.1); Sodium 140.0 mmol/L (136-145)
[2025-03-03] MEDS: HYDROCORTISONE 10 MG TAB PO SCH (08:53)
--- NOTE | 2025-03-03 09:14 | Discharge Summary ---
Discharge Summary Date of Service March 03, 2025 Principal Dx & Hospital Course #1 = Principal Diagnosis (1) Urinary tract infection due to ESBL Klebsiella: (2) Sepsis: (3) Hyponatremia: (4) Hyperkalemia: (5) STELLA (acute kidney injury): (6) Demyelinating disorder: (7) Orthostatic hypotension: (8) Hypothyroid: (9) Abnormal cortisol level: (10) Type 2 diabetes mellitus, with long-term current use of insulin: Plan Ms Medina is a 54yo female with history of recurrent UTIs, ileostomy creation 08/2024 at [facility] due to colonic inertia/motility disorder, ? of a demyelinating disease although ultimately ruled out based on neurology notes, chronic prednisone use from [id number] for concern for autoimmune/inflammatory arthritis (seen by [facility] rheum for such, no specific diagnosis found, prednisone weaned off earlier this year), gastric bypass status, prior DVT, peripheral neuropathy, T2DM on insulin pump, history of renal cell carcinoma s/p partial nephrectomy, ADD, hypothyroidism, May-Thurner Syndrome, and HTN. Presented 03/01/2025 from her PCP's office due to refractory UTI symptoms in the setting of MDR/ESBL klebsiella oxytoca that grew on 02/18 urine culture. #UTI/ESBL klebsiella/sepsis POA UC from 02/18 + for ESBL Klebsiella. --> consistent w/ repeat UC on 03/01 BC neg @ 24hrs Procal negative; lactate initially 2.1 but upon recheck normalized to 1.4 CBC w/ resolution of leukocytosis. IV Ertapenem x 7 days Has had recent renal US from [facility] --> pending a read? #hyponatremia - resolved Mildly low upon admission @ 135 Improvement to 140 on 03/03 s/p IV fluids #mild hyperkalemia K mildly elevated upon admission @ 5.2 Improvement to 4.6 on 03/03 s/p IVF #STELLA - resolved present on admission w/ creatinine of 1.60. Baseline ~ 1.3 improvement to 1.11 on 03/03 continue IVF #mildly low cortisol, prior prednisone use for about 1 year (ended sometime early 2024) random cortisol 5 Cosyntropin stim w/ slow response started hydrocortisone 15mg in AM & 10mg @ 2pm --> PCP can gradually taper off when appropriate. #T2DM on insulin pump - a1c 7.3% in late January she has had excellent control with her pump (and Monjouro) #hypothyroidism - TSH wnl in late January cont home Synthroid dosing #h/o ADD - cont home Adderall #mood disorder -cont abilify #neuropathy -cont cymbalta discharged home 03/03 Admission HPI Per Admitting Provider Ms Medina is a 54yo female with history of recurrent UTIs, ileostomy creation 08/2024 at [facility] due to colonic inertia/motility disorder, ? of a demyelinating disease although ultimately ruled out based on neurology notes, chronic prednisone use from [id number] for autoimmune/inflammatory arthritis (seen by rheum for such, no specific diagnosis found), gastric bypass status, prior DVT, peripheral neuropathy, T2DM on insulin pump, history of renal cell carcinoma, ADD, hypothyroidism, May-Thurner Syndrome, and HTN. Patient was seen earlier today by her PCP and due to ongoing UTI symptoms and recent urine culture from 02/18 showing highly resistant klebsiella oxytoca it was advised she seek hospitalization. With respect to her current UTI she has had symptoms dating back to late January. This is in addition to a UTI she was treated for in late December/early January. Current UTI was initially treated with macrobid, but with 1 dose she felt confused/delirious. Thus, she did not take any further macrobid. Then, last week, she took 2 doses of fosfomycin. Despite the above she has continued with bothersome UTI symptoms including dysuria, malodorous urine, incontinence, frequency, and incomplete bladder emptying. Denies abdominal pain. Normal appetite fortunately. Did have subjective fevers with chills in late January. No vomiting but has had nausea occasionally. She had a renal u/s last week at [facility] but has not received the results. Has had some mild b/l flank pain during her illness. In addition to the UTI symptoms she reports feeling short of breath. This occurs when she stands as well as when she walks short distances. These chest symptoms started in August 2024 after her ileostomy surgery. The chest symptoms are worse when she has an active UTI. No chest pain, but has a dull ache with the shortness of breath. Has had intermittent swelling in her legs, and in early January she had odd right leg pains. Patient reports she was started on Mounjouro about 1 month ago. She continues on her insulin pump. Most BSGs are <150. Review of her chart shows she was admitted to [facility] in October of this year for chest symptoms & tachycardia. CTA chest was negative for PE at that time. I cannot find the actual report but her Lexiscan nuclear stress test was negative (per notes from her PCP). Discharge Exam Constitutional WD/WN, vitals as above Eyes PERRL, conjunctivae normal, anicteric sclerae Respiratory normal respiratory effort Psychiatric A+Ox3, euthymic affect Discharge Plan Discharge Items Patient Disposition: Home - Self-Care Reason For Visit: COMPLICATED UTI Discharge Diagnosis: Complicated UTI Condition on Discharge: Good Activity: Resume your previous activity Non-emergency contact: Primary Care Provider Call non-emergency contact if: you have any medication questions, your symptoms worsen and you have a fever Follow-up/Referrals: Ron Lyons MD [Primary Care Provider] - 03/11/25 11:30 am (Hospital follow up on March 11 at 11:30 am.) Diet: Carb Consistent or DM2 Addtl Attending Provider Instructions: Ms. Medina, You were recently hospitalized for an ongoing UTI that was resistant to oral antibiotics. You were treated with appropriate IV antibiotics that will continue upon discharge at our infusion center. You were also found to have below fun ctioning adrenal glands and have been started on steroids. Please see recommendations below regarding your discharge. Please report to the infusion center once daily for your IV dose of Ertapenem through 03/08/2025. Please use Zofran as needed for nausea/vomiting. Please take Hydrocortisone 15mg in the morning and 10mg around 2pm. Please follow up with your PCP for further guidance on duration of these steroids. The remainder of your medications may be resumed unless stated otherwise below. Please follow up with your PCP within 1-2 weeks of discharge. If you develop any fevers, chest pain, shortness of breath please report back to the ED for further care. Best of luck! Nahomy Jaramillo PA-C Pending Studies at Discharge: No Stand-Alone Forms: My [employer], Smoking Cessation Medications and DC Order Prescriptions: New hydrocortisone [Cortef] 10 mg Tablet 10 mg PO 1400 Qty: 30 0RF hydrocortisone [Cortef] 10 mg Tablet 15 mg PO QAM Qty: 30 0RF Continued cholecalciferol (vitamin D3) 125 mcg (5,000 unit) tablet 5,000 unit PO PM Qty: 30 3RF dextroamphetamine-amphetamine [Adderall] 20 mg tablet 20 mg PO TID Rx Instructions: administer doses at least 4-6 hours apart pravastatin 20 mg tablet 20 mg PO HS Qty: 90 3RF ondansetron 4 mg tablet,disintegrating 4 mg PO Q8H PRN (Reason: nausea and vomiting) Qty: 30 0RF metformin 500 mg tablet 1,000 mg PO BID Qty: 360 3RF cyclobenzaprine 10 mg tablet 10 mg PO HS Qty: 30 1RF magnesium oxide 400 mg magnesium tablet 400 mg PO BID Qty: 0 zolpidem [Ambien] 5 mg tablet 10 mg PO HS PRN (Reason: Sleep) fluticasone propionate 50 mcg/actuation spray,suspension 2 spray intranasal DAILY Qty: 16 2RF Rx Instructions: administer into each nostril aspirin 81 mg tablet,delayed release (DR/EC) 81 mg PO QPM Qty: 0 aripiprazole 20 mg tablet 20 mg PO DAILY Qty: 30 2RF pregabalin 50 mg capsule 50 mg PO BID Qty: 60 1RF lorazepam [Ativan] 1 mg tablet 1 mg PO BID PRN (Reason: Anxiety) duloxetine 60 mg capsule,delayed release(DR/EC) 60 mg PO DAILY cyanocobalamin (vitamin B-12) 1,000 mcg/mL solution 1,000 mcg IM MONTHLY levothyroxine [Synthroid] 150 mcg tablet 150 mcg PO [id number] Rx Instructions: skip Friday insulin lispro [Humalog U-100 Insulin] 100 unit/mL solution 0 sliding scale dose continuous subcutaneous infusion CONTINOUS Rx Instructions: Infuse via insulin pump 100 units a day; clotrimazole 1 % cream 1 applic topical BID PRN (Reason: Skin Irritation) insulin lispro [Humalog KwikPen Insulin] 100 unit/mL insulin pen See Rx Instructions subcut .COMPLEX PRN (Reason: WHEN NOT USING INSULIN PUMP) Rx Instructions: use by insulin to carbohydrate ratio of 1:8; up to 70 units a day subcutaneously ; when not using insulin pump tirzepatide 5 mg/0.5 mL pen injector 7.5 mg subcut WK Rx Instructions: MONDAYS Held methenamine hippurate 1 gram tablet 1 g PO BID Qty: 180 1RF Hold Instructions: Resume on 03/09/25. hold until done w/ UTI treatment No Action (DME) pen needle, diabetic [BD Ultra-Fine Marichuy Pen Needle] 32 gauge x 5/32" needle See Rx Instructions miscellaneous .MEDSUPPLY Qty: 100 1RF Rx Instructions: Change pen needle every day (DME) BD Luer-Warren Syringe 3 mL 20 gauge x 1" syringe See Rx Instructions .Route Qty: 100 0RF Rx Instructions: As directed (DME) FreeStyle Precision Mohsen Strips Strip See Rx Instructions .Route Qty: 100 0RF Rx Instructions: use to calibrate Jaclyn 2 sensore BID (DME) syringe with needle, safety [Monoject Safety Syringes] 3 mL 22 gauge x 1" syringe See Rx Instructions .Route Qty: 50 0RF Rx Instructions: As directed (DME) blood-glucose meter [OneTouch Verio Flex meter] Misc See Rx Instructions .Route Qty: 1 0RF Rx Instructions: Test blood sugar twice a day (DME) OneTouch Verio test strips Strip See Rx Instructions .Route Qty: 200 3RF Rx Instructions: Test blood sugar twice a day (DME) lancets [OneTouch Delica Plus Lancet] 33 gauge misc See Rx Instructions .Route Qty: 200 3RF Rx Instructions: Test blood sugars twice a day (DME) Dexcom G6 Sensor Device See Rx Instructions .Route Rx Instructions: As directed (DME) Ketostix Strip See Rx Instructions .ROUTE .MEDSUPPLY Qty: 25 3RF Rx Instructions: As directed (DME) Rolator type walker with handbrakes and seat See Rx Instructions .Route .MEDSUPPLY Qty: 1 0RF Rx Instructions: As directed Discharge Orders: Discharge Order (Routine); Ordered 03/03/25 Ordered By: Nahomy Jaramillo Admission Data Admit Date/Time: 03/01/25 15:36 Attending Provider: Paco Yadav Admit Provider: Reagan Neville Primary Care Provider: Ron Lyons Other Providers: Reagan Neville Other Interventions: Discharge Summary Assessment (RN) Last Done: 03/03/25 13:18 Hospital Stay Data Consultations 03/01/25 14:23 ED Decision to Admit Stat Diagnostic Imagining Performed 03/01/25 15:37 US venous doppler LE BI Stat Pending Results Patient Have Any Pending Studies at Discharge: No Discharge Instructions Given to Patient (Per Discharging Provider) Ms. Medina, Gianluca were recently hospitalized for an ongoing UTI that was resistant to oral antibiotics. You were treated with appropriate IV antibiotics that will continue upon discharge at our infusion center. You were also found to have below functioning adrenal glands and have been started on steroids. Please see recommendations below regarding your discharge. Please report to the infusion center once daily for your IV dose of Ertapenem through 03/08/2025. Please use Zofran as needed for nausea/vomiting. Please take Hydrocortisone 15mg in the morning and 10mg around 2pm. Please follow up with your PCP for further guidance on duration of these steroids. The remainder of your medications may be resumed unless stated otherwise below. Please follow up with your PCP within 1-2 weeks of discharge. If you develop any fevers, chest pain, shortness of breath please report back to the ED for further care. Best of luck! Nahomy Jaramillo PA-C Total Time Total Time Spent Total Time Spent (In Minutes): 45 Total Time Includes: Examination of the Patient, Discharge Planning and Medication Reconciliation Coding Level of Care Code 56817 INP/OBS DISCH >30 MIN Diagnoses Urinary tract infection due to ESBL Klebsiella N39.0; B96.89 Sepsis A41.9 Hyponatremia E87.1 Hyperkalemia E87.5 STELLA (acute kidney injury) N17.9 Demyelinating disorder G37.9 Orthostatic hypotension I95.1 Hypothyroid E03.9 Abnormal cortisol level R79.89 Type 2 diabetes mellitus, with long-term current use of insulin E11.9; Z79.4
[2025-03-03 11:07] VITALS: BP 124/82; PULSE 97; RESP 20
== END 2025-03-03 14:05 | disposition home or self-care (01) ==
LOC: ED 12:43 → EDINP 15:36 → INTOOBSV 15:36 → SUATTDRO 15:36 → 2S 17:33